=== PATIENT | female | born 1980 ===

== ENCOUNTER 2017-01-15 14:31 | Emergency (ER) | payer OTHER ==
[2017-01-15 14:46] VITALS: BP 135/81; PULSE 95; RESP 18; TEMP 97.3; O2SAT 96
--- NOTE | 2017-01-15 15:05 | ED PDOC ---
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 Patient states that she fell backwards in a spinning motion and her right lower back landed on the leg of a stretcher. She denies any head trauma or loss of consciousness. Patient denies any prior history of back problems. PMD: Non [facility] provider Past Medical History Reviewed: Historical Data, Nursing Documentation, Vital Signs Vital Signs: Last Vital Signs Temp 97.3 F L 01/15/17 14:43 Pulse 95 H 01/15/17 14:43 Resp 18 01/15/17 14:43 BP 135/81 01/15/17 14:43 Pulse Ox 96 01/15/17 14:43 - Medical History PMH: Asthma - Surgical History Other surgeries: Fracture repair left forearm - Family History Family History: States: No Known Family Hx - Social History Current smoker - smoking cessation education provided: No Alcohol: None Drugs: Denies - Home Medications Home Medications: Ambulatory Orders Medication Instructions Recorded Cyclobenzaprine [Cyclobenzaprine 10 mg PO TID PRN #20 tab 01/15/17 HCl] Naproxen [Naprosyn] 500 mg PO BID #20 tab 01/15/17 - Allergies Allergies/Adverse Reactions: Allergies Allergy/AdvReac Type Severity Reaction Status Date / Time No Known Allergies Allergy Verified 01/15/17 15:13 Review of Systems ROS Statement: Except As Marked, All Systems Reviewed And Found Negative Musculoskeletal: Positive for: Back Pain. Negative for: Neck Pain Neurological: Positive for: Other (no head injury or LOC) Physical Exam - Reviewed Nursing Documentation Reviewed: Yes Vital Signs Reviewed: Yes - Physical Exam Appears: Positive for: Well, Non-toxic, No Acute Distress Head Exam: Positive for: ATRAUMATIC, NORMAL INSPECTION, NORMOCEPHALIC Skin: Positive for: Normal Color Eye Exam: Positive for: Normal appearance Back: Positive for: Vertebral Tenderness (tenderness along the midline lumbar spine with no step off), Muscle Spasm (right lower lumbar region) Extremity: Positive for: Normal ROM Neurologic/Psych: Positive for: Alert, Oriented - Laboratory Results Urine POC: Negative - ECG O2 Sat by Pulse Oximetry: 96 (RA) Pulse Ox Interpretation: Normal - Other Rad L/S Spine X-ray X-Ray: Interpreted by Me, Viewed By Me X-Ray Interpretation: no fx, no dis Medical Decision Making Medical Decision Making: Time: 15:13 Initial Impression: 36 year old female with back pain s/p fall Initial Plan: --Urine --Flexeril 10 mg PO --Toradol 30 mg IM --X-Ray LS Spine --Reevaluation Time: 15:37 XRAY LS SPINE: FINDINGS: BONES: Alignment appears satisfactory. No listhesis. No acute displaced fracture identified. DISC SPACES: Unremarkable. OTHER FINDINGS: None. IMPRESSION: No acute displaced fracture or subluxation identified. Patient is aware of x-ray results, all questions answered. Time: 16:35 Upon provider reevaluation, patient reports feeling better after medications given. Will d/c with cyclobenzaprine and naprosyn rx. Patient provided with work note, and instructed to avoid heavy lifting at work. She will follow up with PMD or orthopedist for further evaluation. There is agreement to discharge plan. Return if symptoms persist or worsen. Scribe Attestation: Documented by Tammy Jones, acting as a scribe for Nenita Albrecht PA-C Provider Scribe Attestation: All medical record entries made by the Scribe were at my direction and personally dictated by me. I have reviewed the chart and agree that the record accurately reflects my personal performance of the history, physical exam, medical decision making, and the department course for this patient. I have also personally directed, reviewed, and agree with the discharge instructions and disposition. Disposition - Clinical Impression Clinical Impression: Back strain - Patient ED Disposition Is Patient to be Admitted: No Counseled Patient/Family Regarding: Studies Performed, Diagnosis, Need For Followup, Rx Given - Disposition Referrals: Gianni Rae III, MD [Staff Provider] - Disposition: Routine/Home Disposition Time: 16:49 Condition: STABLE Additional Instructions: Take rx meds as directed as needed for pain. Rest and avoid heavy lifting. Follow up with orthopedist is 2-3 days. Prescriptions: Cyclobenzaprine [Cyclobenzaprine HCl] 10 mg PO TID PRN #20 tab PRN Reason: Muscle Spasm Naproxen [Naprosyn] 500 mg PO BID #20 tab Instructions: Muscle Strain (ED), Acute Low Back Pain (ED) Forms: [employer] (Turkish), [facility] ED School/Work Excuse
--- NOTE | 2017-01-15 15:43 | RAD ---
PROCEDURE: Radiographs of the Lumbar Spine. HISTORY: trauma COMPARISON: None available. FINDINGS: BONES: Alignment appears satisfactory. No listhesis. No acute displaced fracture identified. DISC SPACES: Unremarkable. OTHER FINDINGS: None. IMPRESSION: No acute displaced fracture or subluxation identified.
== END 2017-01-15 17:17 | disposition home or self-care (01) ==
LOC: H.ER 14:31
DX: S39.012A Strain of muscle, fascia and tendon of lower back, initial encounter (principal); W19.XXXA Unspecified fall, initial encounter; Y99.0 Civilian activity done for income or pay; J45.909 Unspecified asthma, uncomplicated
CPT/HCPCS: 72100; 81025; 96372; 99282; J1885